=== PATIENT | male | born 1995 | race Caucasian/White ===

== ENCOUNTER → 2017-01-16 | Outpatient (CLI) | payer OTHER ==
[~2017-01-16] MED LIST: LEVO200T6 PO; LEVO25TA PO; MULT-506 PO
== END | disposition home or self-care (01) ==
LOC: C.LABSPEC 16:30
DX: J02.9 Acute pharyngitis, unspecified (principal)

== ENCOUNTER → 2017-04-03 | Outpatient (CLI) | payer OTHER ==
--- NOTE | 2017-04-04 06:03 | PAP/PSG TECHNICIAN REPORT ---
[facility] Business Office Technician Polysomnogram Report Study name: None Report date: 04/04/2017 Study date: 04/03/2017 Referring Physician: Brandon Sidhu Name: VINCE CORONA Interpreting Physician: Black Hernandez D.O. Date of : 1995 Business Office Technician: Janine Parry [facility]. Sex: Male Age: 21 StudyType: PSG Weight: 216 lbs Height: 21 years, Height 5' 8" Neck Circum: 43 cm BMI: 32.84 Medications: Levothyroxine Patient History 21 yr. old male here [facility] for a diagnostic sleep study. Patient complains of witnessed apneas, snoring and EDS. ESS 1624. Patient had an in lab PSG done on 09/06/13 and had an AHI and RDI of 1.9. Parameters Monitored NPSG: E1-M2, E2-M1, Fp1-M2, Fp2-M1, F3-M2, F4-M2, F4-M1, C3-M2, C4-M2, C4-M1, O1-M2, O2-M2, O2-M1, T3-M2, T4-M1, P3-M2, P4-M1, CHIN1, CHIN2, HR, EKG, Legs, PFLOW, SNOR, FLOW, CFLOW, Tidal Volume, THOR, ABDO, SpO2, PLTH, CPRESS, ETCO2 Wave, ETCO2, pH Sleep Architecture Sleep Stages Time at Lights Off 9:33:27 PM STAGES Time (min.) TST (%) Time at Lights On 5:39:57 AM Wake 88.0 -- Total Recording Time (TRT) 487.50 min. N1 27.0 7 Total Sleep Period (TSP) 480.5 min. N2 260.0 65 Total Sleep Time (TST) 398.5min. N3 33.5 8 Awake Time 88.0 min. REM 78.0 20 Wake after Sleep Onset 82.0 min. Sleep Efficiency (SE) 82 % Sleep Onset Latency (GAURAV) 6.0 min. Number of Stage 1 Shifts None Awakenings 18 Stage Changes 68 Number of REM periods 3 REM 78.0 20 REM Latency 127.5 min. NREM 320.5 80 Body Position Analysis Supine Right Left Side Prone Vertical Total Sleep Time (min.) 126.4 90.2 190.9 281.09 12.2 0.0 Total Sleep Time (%) 27% 23% 48% 71 3% N/A% Total Sleep Time REM (min.) 0.0 4.0 74.0 None 0.0 0.0 Total Sleep Time NREM (min.) 106.8 86.2 116.9 None 10.7 0.0 Intermittent Wake (min.) 19.7 42.0 24.7 None 1.5 0.0 Total Sleep Period (%) 26% None None None None None Arousals Myoclonus (PLM) * Events Count Index Events Count Index Spontaneous 5 1 Events Awake (PLMW) 108 73.6 Respiratory 6 0.9 Events Asleep w/ Arousal (PLMA) 0 0.0 PLM 0 0 Events Asleep w/o Arousal (PLMS) 41 6.2 Snoring 7 1 Total Asleep 41 6.2 Total 18 3 Total 149 18 Respiratory Analysis * CA OA MA CH H RERA Total Count 1 0 0 0 17 2 18 Index 0.2 0.0 0.0 0 2.6 0 3.0 Mean Duration 10.1 0.0 0.0 0.00 18.5 21.9 18.4 Longest Duration 10.1 0.0 0.0 0.00 0.0 23.9 31.5 Respiratory Event Summary Total Supine ~Supine Right Left Prone REM NREM Apneas Count 1 0 1 0 1 0 1 0 Index 0.2 0 0 0.0 0.3 0 1 0 Hypopneas (4% Desat) Count 17 13 4 0 4 0 3 14 Index 2.6 7.3 1 0.0 1.3 0.0 2.3 2.6 Apneas & All Hypopneas Count 18 13 5 0 5 0 4 14 Index 2.7 7 1 0 2 0 3.1 2.6 Respiratory Events (Zipper Slide Attacher+All Hyp+RERA) Count 18 14 6 1 5 0 4 14 Index 3.0 8 1 0.7 1.6 0.0 3.1 3.0 Respiratory Related Arousal Count 6 14 1 1 0 0 0 6 Index 0.9 3 0 1 0 0 0 1 Snoring Analysis Supine Right Left Prone REM NREM Total Snore duration 16.0 min Snores count 159 178 506 14 25 832 857 Snore mean duration 1.1 Sec Snores index 89 118 159 79 19.2 155.8 129.0 TST with snoring (%) 4.0% Desaturation Event Summary: Minimum %SpO2 Event Count Mean/Min/Max Duration(sec.) Desaturation Index % Time In Bed > 90 25 18.3 / 7.3 / 48.8 3.8 81.7 86 - 90 2 20.4 / 19.0 / 21.8 1.4 18.2 81 - 85 0 N/A 0.0 0.1 76 - 80 0 N/A 0.0 0.0 71 - 75 0 N/A 0.0 0.0 66 - 70 0 N/A 0.0 0.0 61 - 65 0 N/A 0.0 0.0 56 - 60 0 N/A 0.0 0.0 51 - 55 0 N/A 0.0 0.0 < 50 0 N/A 0.0 0.0 Total REM NREM Awake <50% 0.0 min. 0.0 min. 0.0 min. 0.0 min. 51 - 60% 0.0 min. 0.0 min. 0.0 min. 0.0 min. 61 - 70% 0.0 min. 0.0 min. 0.0 min. 0.0 min. 71 - 80% 0.2 min. 0.0 min. 0.0 min. 0.2 min. 81 - 90% 87.5 min. 29.2 min. 56.5 min. 1.8 min. 91 - 100% 390.6 min. 48.8 min. 263.3 min. 78.4 min. Average 92 91 92 93 Minimum SpO2 80 86 88 80 Desaturation Event Index 3.1 3.1 3.0 4.1 # Desat. Events below 89% 7 4 3 0 Time(%) with Saturation below 89% 0.6 0.3 0.2 0.1 Time(min.) with Saturation below 89% 3.0 1.2 1.1 0.7 Time (mins) REM (mins) NREM (mins) % of TST SpO2 Below 90% 16 4 N12 5.9 SpO2 Below 88% 2 0 0 0 Heart Rate Analysis Min (bpm) Max (bpm) Average (bpm) Awake 32 173 75 NREM 47 127 64 REM 47 85 60 Overall 47 127 63 Supplemental O2 Values Minimum O2 level: None Value Start Time End Time Business Office Technician Comments Mr. Corona slept in the right, left, supine and prone positions. No cardiac arrhythmia or PLMs noted. No bruxism noted. Snoring was noted and scored as a 2 on a scale of 0 through 5. (0=no snoring, 5=snoring loud enough to be heard through a closed door or down the brown way) Mr. Corona awoke to use the restroom once during the night. Mr. Corona stated, "(I do not feel like I got much sleep. The final report will be interpreted and signed by a sleep physician. The completed physician report will then be placed in the patient medical record. Therapy (cm H2O) 0 TIB (min.) 486.5 TST (min.) 398.5 Sleep Onset (min.) 6.0 REM Onset From Sleep (min.) 127.5 Sleep Efficiency % 82 Wakefulness (%) 18 Wakefulness (min.) 88.0 NREM 1 (%) 7 NREM 1 (min.) 27.0 NREM 2 (%) 65 NREM 2 (min.) 260.0 NREM 3 (%) 8 NREM 3 (min.) 33.5 REM (%) 20 REM (min.) 78.0 # Arousals 18 Arousal Index 3 # Snore 857 Snore Index 129.0 AHI 2.7 AHI Supine 7 AHI Non-Supine 1 NREM AHI 2.6 REM AHI 3.1 RDI 3.0 # Obstructive Apnea 0 # Central Apnea 1 # Mixed Apnea 0 # Hypopneas 17 RERAs 2 Total Respiratory Events 22 Time Below SpO2 89% (min.) 2.3 Mean NREM SpO2 (%) 92 Mean REM SpO2 (%) 91 Mean Sleep SpO2 (%) 92 Min NREM SpO2 (%) 88 Min REM SpO2 (%) 86 Position Supine (min.) 126.4 Position Non-supine (min.) 291.7 LM Index Sleep 6.2 LM Index NREM 5.8 LM Index REM 7.7 Mean Heart Rate (bpm) 63 Min Heart Rate (bpm) 47
--- NOTE | 2017-04-05 17:32 | Sleep Study ---
Sleep Study Report Date of Service: 04/03/2017 Sleep Study Report Clinical data: The patient is a 21-year-old male referred by Dr. Brandon Sidhu for a sleep study. He has a BMI of 32.84. He has complaints of snoring, sleep onset insomnia, observed apneas, and excessive daytime somnolence. His Fannin score is 16 out of a possible 24. The patient did have a diagnostic in-lab sleep study done 09/06/2013 and had an apnea-hypopnea index of 1.9 which was normal. Sleep architecture: The patient had a total sleep period of 480.5 minutes. The total sleep time was 398.5 minutes. The sleep efficiency was mildly decreased at 82 percent. The sleep onset latency was 6 minutes which is normal. Wake after sleep onset was elevated to 82 minutes. The REM latency was prolonged to 127.5 minutes. There were 3 REM periods during the night. Sleep consisted of stage N1 7 percent, stage N2 65 percent, stage N3 8 percent, stage REM 20 percent. Arousal data: The patient had a total of 18 arousals including 5 spontaneous arousals, 6 respiratory arousals, and 7 snoring arousals. The arousal index is 3. PLM data: The patient had a total of 41 periodic limb movements of sleep for an index of 6.2. There were 0 arousals associated with limb movements. EKG data: The underlying cardiac rhythm was normal sinus. The cardiac rates ranged from 47-85 beats per minute. The average heart rate was 63 beats per minute. No arrhythmia was noted. Respiratory data: The patient had a total of 18 respiratory events including 1 central apnea and 17 hypopneas. Hypopneas were scored according to the 4 percent desaturation rule. The apnea was 10.1 seconds in length. The mean duration of the hypopneas was 18.5 seconds. The apnea-hypopnea index was 2.7 events per hour. This would suggest no significant sleep apnea. Oximetry data: The average saturation for the night was 92 percent. The lowest recorded saturation was 80 percent. This appears to be due to motion artifact. It appears he has no significant time less than 89 percent. Investigative Agent comments: The patient slept on the right, left, supine, and prone positions. No cardiac arrhythmia noted. No bruxism noted. Snoring was noted and scored as a 2 on a scale of 0 through 5. He awakened to use the restroom once during the night. The patient stated he did not feel like he got much sleep. Impressions: 1. Primary snoring Comments: The patient had a mild decrease in sleep efficiency. He did fall asleep readily. His given history had been that it often takes 3 hours to initiate sleep. He did not have any significant sleep apnea. There was no significant limb movement abnormality. This study does not give a definitive answer as to the patient's symptoms. He was noted to have a high spindle density on EEG. It is unknown if he is taking any medications that could result in high spindle density. Physiologically the patient had over 6 hours of sleep time yet in the post sleep period he indicated he did not feel like he got much sleep. There may be some degree of sleep state misperception. Recommendations: 1. It is suggested that the patient avoid sleeping in the supine position. Typically when supine there is an increase in snoring and respiratory events. 2. Weight loss is advised in light of the elevation of body mass index of 32.84. 3. In light of the patient's complaints of insomnia consideration could be given to having the patient complete sleep log for 2 weeks. 4. The patient should be advised of the appropriate principles of sleep hygiene including having a regular sleep-wake schedule and allowing approximately 7.5 hours of sleep per night. Copies To 1: Black Hernandez DO; Brandon Sidhu,,D.O.
== END | disposition home or self-care (01) ==
LOC: C.NEUR 20:00
DX: R06.83 Snoring (principal)

== ENCOUNTER → 2017-06-13 | Outpatient (CLI) | payer OTHER ==
[2017-06-13 18:49] LABS: INFLUENZA B ANTIGEN Neg for Influ B (NEG)
== END | disposition home or self-care (01) ==
LOC: C.LAB 16:39
DX: R50.9 Fever, unspecified (principal)

== ENCOUNTER → 2017-06-22 | Outpatient (CLI) | payer OTHER ==
[2017-06-22 14:44] LABS: BASO % 0.5 %; BASO ABS # 0.05 K/uL (0-0.2); EOS % 1.8 %; EOS ABS # 0.17 K/uL (0-0.5); HEMATOCRIT 42.6 % (42-52); HEMOGLOBIN 14.6 g/dL (14.0-18.0); LYMPH % 39.3 %; LYMPH ABS # 3.76 K/uL (1.2-3.4); MEAN CELL VOLUME 86.9 fL (80-100); MEAN CORPUSCULAR HEMOGLOBIN 29.8 pg (25-34); MEAN CORPUSCULAR HGB CONC 34.3 g/dl (32-36); MEAN PLATELET VOLUME 8.8 fL (7.4-10.4); MONO ABS # 0.77 K/uL (0.11-0.59); NEUT % 49.4 %; NEUT ABS # 4.72 K/uL (1.4-6.5); PLATELET COUNT 451 K/uL (130-400); RED CELL DISTRIBUTION WIDTH CV 12.7 % (11.5-14.5); RED CELL DISTRIBUTION WIDTH SD 40.3 fL (36.4-46.3); WHITE BLOOD COUNT 9.57 K/uL (4.8-10.8)
[2017-06-22 14:56] LABS: MONOSPOT NEG (NEG)
[2017-06-22 15:14] LABS: ALBUMIN 3.7 gm/dl (3.4-5.0); ALT/SGPT 36 U/L (12-78); AST/SGOT 29 U/L (15-37); BLOOD UREA NITROGEN 15 mg/dl (7-18); CALCIUM 8.7 mg/dl (8.5-10.1); CARBON DIOXIDE 27 mmol/L (21-32); CREATININE 0.97 mg/dl (0.60-1.40); GLUCOSE 99 mg/dl (70-99); POTASSIUM 3.6 mmol/L (3.5-5.1); SODIUM 137 mmol/L (136-145)
[2017-06-22 15:22] LABS: ALKALINE PHOSPHATASE 89 U/L (45-117); TOTAL PROTEIN 7.7 gm/dl (6.4-8.2); TRANSFERRIN 217 mg/dl (200-360)
[2017-06-26 15:25] LABS: ANA SCREEN TC 249X NEGATIVE (NEGATIVE)
== END | disposition home or self-care (01) ==
LOC: C.LAB 13:26
DX: E03.9 Hypothyroidism, unspecified (principal); E22.1 Hyperprolactinemia; E55.9 Vitamin D deficiency, unspecified; R53.83 Other fatigue; E61.1 Iron deficiency; K90.9 Intestinal malabsorption, unspecified

== ENCOUNTER → 2017-07-07 | Outpatient (CLI) | payer OTHER ==
--- NOTE | 2017-07-07 13:46 | DIAGNOSTIC IMAGING REPORT ---
(RENAL)RETROPERITON COMP HISTORY: 22 years-old Male HEMATURIA acute hematuria COMPARISON: None available TECHNIQUE: Multiple real-time sonographic images of the kidneys and urinary bladder were obtained assessing grayscale appearance and color flow FINDINGS: The right kidney measures 9.3 x 5.3 x 4.9 cm is unremarkable without hydronephrosis, renal calculi or focal mass lesion. The left kidney measures 10.9 x 5.4 x 5.0 cm and is also within normal limits without renal calculi, hydronephrosis or focal renal mass lesion. Urinary bladder is unremarkable with bilateral jets seen. IMPRESSION: Unremarkable sonographic appearance of the kidneys and urinary bladder without renal calculi or hydronephrosis. The above report was generated using voice recognition software. It may contain grammatical, syntax or spelling errors. Electronically signed by: Tim Saleem M.D. 07/07/2017 1:45 PM Dictated Date/Time: 07/07/2017 1:43 PM
== END | disposition home or self-care (01) ==
LOC: C.ULTRBC 13:15
DX: R31.9 Hematuria, unspecified (principal)

== ENCOUNTER → 2017-07-12 | Outpatient (CLI) | payer OTHER ==
[2017-07-14 17:07] LABS: VARICELLA ZOS VIR IGG VALUE 233.6 INDEX
== END | disposition home or self-care (01) ==
LOC: C.LAB 15:29
DX: Z02.89 Encounter for other administrative examinations (principal)

== ENCOUNTER → 2017-08-31 | Outpatient (CLI) | payer OTHER | END | disposition home or self-care (01) | LOC: C.LAB 16:06 | DX: E03.9 Hypothyroidism, unspecified (principal); E55.9 Vitamin D deficiency, unspecified ==

== ENCOUNTER → 2017-09-19 | Outpatient (CLI) | payer OTHER ==
[2017-09-19 17:00] LABS: LUTEINIZING HORMONE 5.77 IU/L
[2017-09-19 17:01] LABS: FOLLICLE STIMULAT HORMONE 2.51 IU/L
== END | disposition home or self-care (01) ==
LOC: C.LAB 15:10
PROVIDERS: ATTEND Internal Medicine Endocrinology, Diabetes & Metabolism
DX: N62 Hypertrophy of breast (principal); E03.9 Hypothyroidism, unspecified

== ENCOUNTER → 2017-10-03 | Outpatient (CLI) | payer OTHER ==
[2017-10-03 16:10] LABS: TESTOSTERONE,TOTAL 498.5 ng/dl
[2017-10-03 16:11] LABS: FOLLICLE STIMULAT HORMONE 2.99 IU/L; LUTEINIZING HORMONE 4.66 IU/L; PROLACTIN 6.63 ng/mL
== END | disposition home or self-care (01) ==
LOC: C.LAB 14:37
DX: N62 Hypertrophy of breast (principal)

== ENCOUNTER → 2017-12-27 | Outpatient (CLI) | payer OTHER | END | disposition home or self-care (01) | LOC: C.LAB 15:30 | DX: E29.1 Testicular hypofunction (principal); Z13.220 Encounter for screening for lipoid disorders; Z13.1 Encounter for screening for diabetes mellitus ==

== ENCOUNTER → 2018-01-10 | Outpatient (CLI) | payer OTHER | END | disposition home or self-care (01) | LOC: C.LAB 14:16 | DX: Z13.220 Encounter for screening for lipoid disorders (principal); Z13.1 Encounter for screening for diabetes mellitus; Z11.59 Encounter for screening for other viral diseases ==